=== PATIENT | female | born 1970 | race Caucasian/White ===

== ENCOUNTER → 2016-11-11 | Outpatient (CLI) | payer BC ==
[~2016-11-11] MED LIST: AMBIEN 5MG TABLE5 MG PO; DOXYCYCLINE 10100 MG PO; PRISTIQ100 MG PO
== END ==
LOC: BHSO 13:14
DX: F41.1 Generalized anxiety disorder (principal)

== ENCOUNTER → 2017-01-20 | Outpatient (CLI) | payer BC | LOC: BHSO 15:10 | DX: F33.42 Major depressive disorder, recurrent, in full remission (principal) ==

== ENCOUNTER → 2017-03-31 | Outpatient (CLI) | payer BC | LOC: COL.VAS 10:26 | DX: M79.89 Other specified soft tissue disorders (principal) ==

== ENCOUNTER → 2017-08-09 | Outpatient (CLI) | payer BC | LOC: MC.RAD 08:50 | DX: Z12.31 Encounter for screening mammogram for malignant neoplasm of breast (principal) ==

== ENCOUNTER → 2017-08-21 | Outpatient (CLI) | payer BC | LOC: BHSO 10:23 | DX: F33.0 Major depressive disorder, recurrent, mild (principal) ==

== ENCOUNTER → 2017-11-23 | Outpatient (CLI) | payer BC | LOC: BHSO 14:17 | DX: F33.41 Major depressive disorder, recurrent, in partial remission (principal) | CPT/HCPCS: G0463 ==

== ENCOUNTER → 2018-02-27 | Outpatient (CLI) | payer BC | LOC: BHSO 13:22 | DX: F33.42 Major depressive disorder, recurrent, in full remission (principal) | CPT/HCPCS: G0463 ==

== ENCOUNTER → 2018-09-06 | Outpatient (CLI) | payer BC | LOC: MC.RAD 12:55 | DX: Z12.31 Encounter for screening mammogram for malignant neoplasm of breast (principal) ==

== ENCOUNTER → 2018-10-11 | Outpatient (CLI) | payer BC | LOC: BHSO 08:55 | DX: F33.42 Major depressive disorder, recurrent, in full remission (principal) | CPT/HCPCS: G0463 ==

== ENCOUNTER → 2018-11-09 | Outpatient (CLI) | payer BC | LOC: BHSO 08:40 | DX: F33.41 Major depressive disorder, recurrent, in partial remission (principal) ==

== ENCOUNTER → 2019-01-03 | Outpatient (CLI) | payer BC | LOC: BHSO 08:51 | DX: F33.42 Major depressive disorder, recurrent, in full remission (principal) | CPT/HCPCS: G0463 ==

== ENCOUNTER → 2019-04-04 | Outpatient (CLI) | payer BC | LOC: BHSO 08:36 | DX: F90.0 Attention-deficit hyperactivity disorder, predominantly inattentive type (principal) | CPT/HCPCS: G0463 ==

== ENCOUNTER → 2019-10-14 | Outpatient (CLI) | payer BC | LOC: BHSO 08:50 | DX: F33.42 Major depressive disorder, recurrent, in full remission (principal) | CPT/HCPCS: G0463 ==

== ENCOUNTER → 2019-10-29 | Outpatient (CLI) | payer BC | LOC: MC.RAD 08:00 | DX: Z12.31 Encounter for screening mammogram for malignant neoplasm of breast (principal) ==

== ENCOUNTER → 2020-04-29 | Outpatient (CLI) | payer BC | LOC: BHSO 08:55 | DX: F33.42 Major depressive disorder, recurrent, in full remission (principal) | CPT/HCPCS: G0463 ==

== ENCOUNTER → 2020-11-11 | Outpatient (CLI) | payer BC ==
[~2020-11-11] MED LIST changes: +CYANOCOBAL1000 MCG/M IM; +LIPITOR20 MG PO; +ONE-A-DAY ESSE1 EACH PO; +PROVIGIL200 MG PO; +RESTORIL30 MG PO; +VITAMIND3 5000 PO; +ZOLOFT 100MG100 MG PO
== END ==
LOC: MC.RAD 10:13
DX: Z12.31 Encounter for screening mammogram for malignant neoplasm of breast (principal)

== ENCOUNTER 2021-02-01 16:00 | Outpatient (RCR) | payer BC ==
[2021-01-07 16:38] VITALS: BP 157/89; PULSE 69; TEMP 99
--- NOTE | 2021-01-07 17:55 | NUR ---
PT reports not feeling well, she reports sharp pain to epigastric region and both sides of low back. this pain is worse with inspiration and making it hard to take a breath. Pt also has mentioned some tingling to left foot (lateral and across top) during the infusion, and pt now c/o 6-8/10 left foot pain that is severe enough that she feels she can not put her shoe on. tender to palp. no observable swelling noted, pulses palpable bilat. cms similar to both feet. no calf pain or other leg pain. I called geospatial information technologist physician and spoke to Dr. Moralez who advised administering 1000 mg po tylenol and 25 mg iv benadryl and to monitor pt until 1900. Advised to transport to ER if sx worse or pt unstable. IF better at 1900, ok to dc with return precautions.
[2021-01-07 19:46] VITALS: BP 136/96; PULSE 77
--- NOTE | 2021-01-07 20:28 | NUR ---
PT WAS AMB TO EXIT WITH , FEELING A BIT BETTER AT TIME OF DEPARTURE.
[2021-01-25 16:30] VITALS: BP 130/82; PULSE 68; TEMP 98.2
[~2021-02-01] VITALS: Ht 162.6 cm; Wt 72.9 kg
[2021-02-01 16:15] VITALS: BP 130/89; PULSE 81; TEMP 98.9
== END 2021-02-01 17:39 ==
LOC: EUO 16:00
DX: D50.9 Iron deficiency anemia, unspecified (principal)
CPT/HCPCS: J1200; J1756; J2916

== ENCOUNTER → 2021-12-15 | Outpatient (CLI) | payer BC | LOC: MC.RAD 09:30 | DX: Z12.31 Encounter for screening mammogram for malignant neoplasm of breast (principal); N63.20 Unspecified lump in the left breast, unspecified quadrant ==

== ENCOUNTER → 2021-12-17 | Outpatient (CLI) | payer BC | LOC: MC.RAD 12:51 | DX: N63.25 Unspecified lump in the left breast, overlapping quadrants (principal) ==